=== PATIENT | female | born 1940 | race American Indian/Alaskan Native ===

== ENCOUNTER 2018-04-17 07:49 | Day surgery (SDC) | payer MEDICARE, OTHER ==
[2014-08-04 14:48] VITALS: BMI 37.3
--- NOTE | 2018-04-17 09:53 | CP.SDSHP ---
Same Day Surgery H & P - History Proposed Procedure: PEG Pre-Op Diagnosis: SEE NOTES - Previous Medical/Surgical History Endocrine/Metabolic: Thyroid Disease Neuro: Other Misc: Other Pain: 2.Mild Pain Previous Surgical History: PEG / FOR REPLACEMENT - Allergies Allergies: Allergies SHANNON Inhibitors Allergy (Verified 04/17/18 07:59) ANAPHYLAXIS aspirin Allergy (Verified 04/17/18 07:59) ANAPHYLAXIS erythromycin base Allergy (Verified 04/17/18 07:59) ANAPHYLAXIS - Physical Exam General Appearance: N Vital Signs: Vital Signs 04/17/18 08:08 Temperature 96.6 F L Pulse Rate 53 L Respiratory 18 Rate Blood Pressure 114/49 L O2 Sat by Pulse 100 Oximetry Mental Status: Alert & Oriented x3 Neuro: Other Heart: Other Lungs: WNL GI: Other - {Optional Preform as Required} Breast: WNL Abdomen: Other Rectal: Other Integument: WNL : WNL Ortho: WNL ENT: WNL - Impression Pt. Evaluated Today:Candidate for Anesthesia & Procedure: Yes - Date & Time Time: 09:55 Short Stay Discharge - Short Stay Discharge Admitting Diagnosis/Reason for Visit: DYSPHAGIA, PHARYNGOESOPHAGEAL PHASE Disposition: HOME/ ROUTINE Referrals: PCP,NO [Primary Care Provider] -
[2018-04-17] MEDS ORDERED: Lidocaine Hydrochloride 10 ML INJ ONE (09:58)
[2018-04-17] MEDS ORDERED: Etomidate 20 mg/10ml Inj IV ONE (09:59)
[2018-04-17] MEDS ORDERED: metroNIDAZOLE IV 500 mg/100 ml 500 MG/100 ML BAG IVPB STA (10:06)
[2018-04-17 10:41] VITALS: TEMP 98.9
[2018-04-17 11:51] VITALS: BP 116/62; PULSE 73; RESP 20; O2SAT 99
== END 2018-04-17 12:26 ==
LOC: C.ENDO 07:49
PROVIDERS: ATTEND Specialist
DX: K21.0 Gastro-esophageal reflux disease with esophagitis (principal); K22.2 Esophageal obstruction; Z93.1 Gastrostomy status; I10 Essential (primary) hypertension; Z86.73 Personal history of transient ischemic attack (TIA), and cerebral infarction without residual deficits; Z86.718 Personal history of other venous thrombosis and embolism; Z98.84 Bariatric surgery status; Z79.899 Other long term (current) drug therapy; Z88.6 Allergy status to analgesic agent; Z88.1 Allergy status to other antibiotic agents; Z88.8 Allergy status to other drugs, medicaments and biological substances